=== PATIENT | female | born 1960 | race Caucasian/White ===

== ENCOUNTER → 2019-03-26 | Day surgery (SDC) | payer OTHER ==
[~2019-03-26] MED LIST: FENTANYL CITRATE/PF 100MCG/2 ML INJ ONE; MIDAZOLAM HCL 2 MG/2 ML VIAL ONE; MONTELUKAST SOD10 MG PO; PROPOFOL IV EMULSION 10 MG/ML 50 ML VIAL ONE; SYNTHROID100 MCG PO; ZOLOFT100 MG PO; ZYRTEC10 MG PO
--- OUTSIDE RECORDS SUMMARY | 2019-03-26 07:14 | XMS REPORT | Continuity of Care Document ---
Author Author [facility] Organization [facility] Address Unknown Phone Unavailable Care Team Providers Care Ink Printer Name Role Phone [facility] Unavailable Unavailable Problems Problem Status Onset Date Classification Date Reported Comments Source R52 - "PAIN, UNSPECIFIED" Active 04/05/2016 [facility] [place] [facility] Muscle strain (disorder) Active 11/22/2014 Problem 04/08/2016 Data migrated from [employer] on 02/11/15. [facility] [place] [facility] Depression - motion (qualifier value) Resolved Problem 04/08/2016 [facility] [place] [facility] Hypothyroidism (disorder) Resolved Problem 04/08/2016 [facility] [place] [facility] Morbid obesity (disorder) Active Problem 04/08/2016 [facility] [place] [facility] Medications No Data Provided for This Section Allergies, Adverse Reactions, Alerts No Known Medication Allergies Immunizations No Data Provided for This Section Results No Data Provided for This Section Pathology Reports No Data Provided for This Section Diagnostic Reports Report Value Date Source Spine cervical 2 or 3 view DX Study: Spine cervical 2 or 3 view DX 04/07/2016 12:00 AM CDT Ordering Physician: Nadine Flores MD Clinical Indication: NECK PAIN Comparison: None FINDINGS: AP, lateral and odontoid views of the cervical spine are obtained. Cervical lordosis is straightened. Vertebral body heights are adequately maintained, with normal alignment. Mild loss of disc height is present at C4-C5 and C5-C6. Mild to moderate multiple level anterior spondylosis is seen. There is mild right C6/C7 uncinate spur. There is no appreciable posterior spondylosis or facet arthrosis. No prevertebral soft tissue swelling, fracture, spondylolisthesis or destructive lesion is seen. IMPRESSION: Mild loss of disc height is noted at C4-C5 and C5-C6, with multiple level anterior spondylosis. There is mild right C6/C7 uncinate spur. SL: [id number] 04/05/2016 [facility] [place] [facility] Consultation Notes No Data Provided for This Section Discharge Summaries No Data Provided for This Section History and Physicals No Data Provided for This Section Vital Signs No Data Provided for This Section Encounters Location Location Details Encounter Type Encounter Number Reason For Visit Attending Provider ADM Date DC Date Status Source Outpatient [id number] OLUTONI ODUMOSU 04/11/2015 Active [facility] Outpatient [id number] OLUTONI ODUMOSU 07/27/2015 Active [facility] Outpatient [id number] NADINE OGUNDADEGBE 12/19/2015 Active [facility] Outpatient [id number] NADINE OGUNDADEGBE 04/05/2016 [facility] [id number] Nadine Ogundadegbe 04/05/2016 04/06/2016 [facility] [place] [facility] Outpatient [id number] NADINE OGUNDADEGBE 05/29/2017 Active [facility] Outpatient [id number] NADINE OGUNDADEGBE 07/26/2017 Active [facility] Outpatient [id number] NADINE OGUNDADEGBE 08/09/2017 Active [facility] Outpatient [id number] NADINE OGUNDADEGBE 10/20/2017 Active [facility] Outpatient [id number] VICTORIANO BRAR 04/13/2018 [facility] Outpatient [id number] ALOK COTTRELL 06/08/2018 [facility] Procedures Procedure Code Date Perfomer Comments Source Appendectomy 51913301 [facility] [place] Hammer toe operation [id number] [facility] [place] Hysterectomy [id number] [facility] [place] Total knee replacement [id number] [facility] [place] Assessment and Plan No Data Provided for This Section Plan of Care No Data Provided for This Section Social History Social History Date Source Social History TypeResponse Alcohol Current, Type Wine. Frequency: 1-2 times per month. Smoking Status Never smoker; Exposure to Tobacco Smoke None; Cigarette Smoking Last 365 Days No; Reg Smoking Cessation Counseling No 12/19/2015 [facility] [place] [facility] Family History No Data Provided for This Section Advance Directives No Data Provided for This Section Functional Status No Data Provided for This Section
--- OUTSIDE RECORDS SUMMARY | 2019-03-26 07:14 | XMS REPORT | Summary of Care ---
Author Author [facility] [place] Organization [facility] Outpatient Imaging [facility] Address Unknown Phone Unavailable Encounter HQ Elodia_iris(ESCOBAR) [id number] Date(s): 04/05/16 - 04/05/16 [facility] Outpatient Imaging [facility] [address] [place], [place] [address] [id number] Discharge Disposition: Home or Self Care Attending Physician: Senait Flores MD Vital Signs No data available for this section Problem List Condition Effective Dates Status Health Status Informant Depression(Confirmed Resolved ) Hypothyroid(Confirme Resolved d) Morbid Active obesity(Confirmed) Muscle strain1 11/22/14 Active 1Data migrated from [employer] on 02/11/15. Allergies, Adverse Reactions, Alerts Substance Reaction Severity Status NKDA Active Medications No data available for this section Results No data available for this section Immunizations No data available for this section Procedures Procedure Date Related Diagnosis Body Site Appendectomy Hammer toe operation Hysterectomy Total knee replacement Social History Social History Type Response Alcohol Current, Type Wine. Frequency: 1-2 times per month. Smoking Status Never smoker; Exposure to Tobacco Smoke None; Cigarette Smoking Last 365 Days No; Reg Smoking Cessation Counseling No Assessment and Plan No data available for this section
--- OUTSIDE RECORDS SUMMARY | 2019-03-26 07:14 | XMS REPORT ---
Author Author Admin, [place] Organization [facility] Address [address] [place] [id number] Phone Allergies, Adverse Reactions, Alerts Allergy Name Reaction Description Start Date Severity Status Provider No Known Allergies Marleny Blanca MD Conditions or Problems Problem Name Problem Code Onset Date Status Entry Date Provider Comment Standard Description Annotate Genrealized Anxiety Disorder 300.02 Active Marleny Blanca MD Generalized anxiety disorder Major depressive disorder, recurrent episode, moderate 296.32 Active Marleny Blanca MD Major depressive disorder, recurrent episode, moderate degree Medication List Medication Instructions Start Date Stop Date Generic Name NDC Status Provider Patient Instruction SERTRALINE HCL 100 MG ORAL TABLET Take half a tablet nightly for a week, then increase to one tablet nightly. SERTRALINE HCL 49932944468 Active Marleny Blanca MD Active Vital Signs Date Name Value Unit Range Description blood pressure, diastolic 82 mm[Hg] BP bauer blood pressure, systolic 136 mm[Hg] BP sys pulse rate E&M 77 /min Heart rate weight E&M 241.13 [lb_av] Weight Measured Procedures Code Procedure Name Date Entry Date Standard Description [id number] Diagnostic evaluation with medical - [address]4932 14:11:34 CDT
[2019-03-26 11:40] VITALS: BP 121/65
== END | disposition home or self-care (01) ==
LOC: OR 07:12
PROVIDERS: ATTEND Internal Medicine Gastroenterology
DX: Z12.11 Encounter for screening for malignant neoplasm of colon (principal); D12.2 Benign neoplasm of ascending colon; D12.4 Benign neoplasm of descending colon; K63.89 Other specified diseases of intestine; K64.8 Other hemorrhoids; E03.9 Hypothyroidism, unspecified; G47.33 Obstructive sleep apnea (adult) (pediatric); J45.909 Unspecified asthma, uncomplicated; Z68.42 Body mass index [BMI] 45.0-49.9, adult
CPT/HCPCS: 45380; 45384; 45385; 93005; J2250; J2704; J3010; 45378